=== PATIENT | male | born 1965 | race Caucasian/White ===

== ENCOUNTER → 2018-10-06 | Outpatient (CLI) | payer BC ==
--- NOTE | 2018-10-06 16:34 | PCVCIMAG ---
APPROVED REPORT Study performed: 10/06/2018 14:47:21 Exam: Stress Echocardiogram Indication: PALPS, CHEST HEAVINESS, dyspnea Patient Location: Echo lab Stress Nurse: Savanna Villeda RN Status: routine Ht: 5 ft 10 in HR: 85 bpm BP: 144/100 mmHg Rhythm: NSR Procedure The patient underwent an Exercise Stress Test using the Vahe Protocol. Blood pressure, heart rate, and EKG were monitored. An Echocardiogram was performed by cryptographic technician in four stages in quad fashion. At peak stress, four selected images were obtained and placed side by side with resting images for comparison. Stress Test Details Stress Test: Exercise stress testing was performed using a Vahe protocol. HR Resting HR: 85 bpmMax Heart Rate (APMHR): 170 bpm Max HR Achieved: 179 bpmTarget HR (85% APMHR): 144 bpm % of APMHR: 105 Recovery HR: 100 bpm HR response to stress: Normal HR response to stress BP Resting BP: 144/100 mmHg Max BP: 158/102 mmHg Recovery BP: 142/90 mmHg BP response to stress: Normal blood pressure response to stress. ECG Resting ECG: Sinus Rhythm Stress ECG: Sinus Rhythm ST Change: Normal Arrhythmia: None Recovery ECG: Sinus Rhythm Recovery ST Change: Normal Recovery Arrhythmia: None Clinical Reason for Termination: Maximal effort Stress Symptoms: Dyspnea Exercise duration: 10 min sec Highest Stage Achieved: Stage 4: 4.2 mph at 16% grade. Exercise capacity: 13.4 METs Overall Exercise Capacity for Age: Good Scale: Active Angina Score: None Pre-Stress Echo The resting Echocardiogram showed normal left ventricular contractility with an estimated Ejection Fraction of about >55%. Normal wall motion in all segments on baseline images. Post-Stress Echo The stress Echocardiogram showed normal left ventricular contractility with an estimated Ejection Fraction of about 65%. Normal augmentation of wall motion in all segments on post stress images. Clinical No clinical or ECG evidence for ischemia. Conclusion Clinical Response: Non-ischemic Exercise Capacity: Average Stress ECG Response: Non-ischemic Stress Echo Images: Non-ischemic The left ventricle is normal in size and wall thickness in both the rest and stress images. Other Information Study Quality: Adequate <Conclusion> The left ventricle is normal in size and wall thickness in both the rest and stress images.
== END | disposition home or self-care (01) ==
LOC: PCVCIMAG 14:33
PROVIDERS: ATTEND Internal Medicine Cardiovascular Disease
DX: I10 Essential (primary) hypertension (principal); G47.33 Obstructive sleep apnea (adult) (pediatric); E78.5 Hyperlipidemia, unspecified
CPT/HCPCS: 93306; 93325; 93351